=== PATIENT | female | born 1985 | race Caucasian/White ===

== ENCOUNTER 2019-07-31 16:42 | Emergency (ER) | payer SELFPAY ==
--- NOTE | 2019-07-31 17:07 | Emergency Department Report ---
Chief Complaint: Abdominal Pain Stated Complaint: ABD PAIN BACK PAIN - HPI History of Present Illness: Bilateral back and lower abdominal pain. labs ordered. MSE screening note: Focused history and physical exam performed. Due to findings the following was ordered: ED Disposition for MSE Condition: Stable Instructions: Abdominal Pain (ED)
[2019-07-31 17:13] VITALS: BP 128/56
[2019-07-31 17:22] LABS: Basophils # (Auto) 0.1 K/mm3 (0.0-0.1); Basophils % (Auto) 1.1 % (0.0-1.8); Eosinophils # (Auto) 0.1 K/mm3 (0.0-0.4); Eosinophils % (Auto) 0.7 % (0.0-4.3); Hematocrit 39.1 % (30.3-42.9); Hemoglobin 13.1 gm/dl (10.1-14.3); Lymphocytes # (Auto) 3.3 K/mm3 (1.2-5.4); Lymphocytes % (Auto) 33.6 % (13.4-35.0); Mean Corpuscular HGB Conc 34 % (30-34); Mean Corpuscular Volume 92 fl (79-97); Monocytes # (Auto) 0.8 K/mm3 (0.0-0.8); Monocytes % (Auto) 8.6 % (0.0-7.3); Platelet Count 242 K/mm3 (140-440); Red Blood Count 4.26 M/mm3 (3.65-5.03); Red Cell Distribution Width 14.4 % (13.2-15.2)
[2019-07-31 17:44] LABS: BUN/Creatinine Ratio 10; Blood Urea Nitrogen 7 mg/dL (7-17); Calcium 9.5 mg/dL (8.4-10.2); Hemolysis Index 5
--- NOTE | 2019-07-31 18:12 | Emergency Department Report ---
ED Abdominal Pain HPI - General Chief Complaint: Abdominal Pain Stated Complaint: ABD PAIN BACK PAIN Time Seen by Provider: 07/31/19 18:08 Source: patient Mode of arrival: Ambulatory Limitations: No Limitations - History of Present Illness Initial Comments: 34-year-old -French female presents to the emergency room for intermittent back pain and pelvic pain off and on for one week. Patient states she is unsure if she is . Patient states that her pain is worse when she stands for long period time. 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 Patient states that ibuprofen makes it better. Patient denies any vaginal discharge vaginal bleeding. Patient denies any heavy cycles. Patient last took ibuprofen last week which she reports helped. Patient currently is in no pain. Patient reports her last menstrual period was 07/17/2019. Patient reports that the pain is intermittently. Patient denies any past medical history currently takes no medications on a daily basis and has no known drug allergies. MD Complaint: abdominal pain Onset/Timin -: week(s) Location: suprapubic Radiation: none Severity scale (0 -10): 0 Quality: aching Consistency: intermittent Improves With: medication Worsens With: other (standing and lifting for long periods of time) Associated Symptoms: nausea - Related Data LMP Date: 07/17/19 Allergies Allergy/AdvReac Type Severity Reaction Status Date / Time No Known Allergies Allergy Unverified 07/31/19 16:53 ED Review of Systems ROS: Stated complaint: ABD PAIN BACK PAIN Other details as noted in HPI Comment: All other systems reviewed and negative ED Past Medical Hx - Past Medical History Previous Medical History?: No - Surgical History Past Surgical History?: No - Social History Smoking Status: Never Smoker Substance Use Type: None ED Physical Exam - General Limitations: No Limitations General appearance: alert, in no apparent distress - Head Head exam: Present: atraumatic, normocephalic - Eye Eye exam: Present: normal appearance - ENT ENT exam: Present: mucous membranes moist - Neck Neck exam: Present: normal inspection - Respiratory Respiratory exam: Present: normal lung sounds bilaterally. Absent: respiratory distress - Cardiovascular Cardiovascular Exam: Present: regular rate, normal rhythm. Absent: systolic murmur, diastolic murmur, rubs, gallop - GI/Abdominal GI/Abdominal exam: Present: soft, normal bowel sounds - Extremities Exam Extremities exam: Present: normal inspection - Back Exam Back exam: Present: normal inspection, full ROM. Absent: tenderness - Expanded Back Exam Expanded Back exam: Negative Straight Leg Raising: Left, Right - Neurological Exam Neurological exam: Present: alert, oriented X3, normal gait - Psychiatric Psychiatric exam: Present: normal affect, normal mood - Skin Skin exam: Present: warm, dry, intact, normal color. Absent: rash ED Course Vital Signs 07/31/19 17:05 Temperature 98.8 F Pulse Rate 70 Respiratory 18 Rate Blood Pressure 128/56 O2 Sat by Pulse 100 Oximetry - Reevaluation(s) Reevaluation #1: 07/31/19 18:11 Provider picked up chart no urine has been collected. ED Medical Decision Making - Lab Data Result diagrams: 07/31/19 17:14 07/31/19 17:14 - Medical Decision Making 34-year-old -French female presents to the emergency room for intermittent back pain and pelvic pain off and on for one week. Patient states she is unsure if she is . Patient states that her pain is worse when she stands for long period time. 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 Patient states that ibu profen makes it better. Patient denies any vaginal discharge vaginal bleeding. Patient denies any heavy cycles. Patient last took ibuprofen last week which she reports helped. Patient currently is in no pain. Patient reports her last menstrual period was 07/17/2019. Patient reports that the pain is intermittently. Patient denies any past medical history currently takes no medications on a daily basis and has no known drug allergies. Patient's labs are all negative. Patient is to continue with ibuprofen as needed for pain and follow-up with her primary care provider. Critical care attestation.: If time is entered above; I have spent that time in minutes in the direct care of this critically ill patient, excluding procedure time. ED Disposition Clinical Impression: Lower back pain, Pelvic pain Disposition: TO HOME OR SELFCARE Is pt being admited?: No Does the pt Need Aspirin: No Condition: Stable Instructions: Abdominal Pain (ED) Additional Instructions: Continue with ibuprofen as needed for intermittent back pain. I recommended for you to follow up with her primary care provider and [facility] provider. Referrals: KATHRYN ZHANG MD [Staff Physician] - 3-5 Days WALDO BRYANT MD [Staff Physician] - 3-5 Days
[2019-07-31 18:34] LABS: Bacteria,Urine 1+ /HPF (Negative); Bilirubin,Urine NEG (Negative); Blood,Urine SM (Negative); Color,Urine Straw (Yellow); Protein,Urine <15 mg/dL mg/dL (Negative); Urobilinogen,Urine < 2.0 mg/dL (<2.0)
== END 2019-07-31 20:20 | disposition home or self-care (01) ==
LOC: ED 16:42
DX: M54.5 Low back pain (principal); R10.2 Pelvic and perineal pain
CPT/HCPCS: 36415; 80048; 81001; 84703; 85025

== ENCOUNTER 2019-08-03 11:40 | Emergency (ER) | payer SELFPAY ==
[2019-08-03 11:48] VITALS: BP 112/68
--- NOTE | 2019-08-03 13:03 | Emergency Department Report ---
Chief Complaint: Upper Respiratory Infection Stated Complaint: CHEST PAIN - HPI History of Present Illness: 34 yo female c/o cp x 2 days pain midline rad to back and burning worse with eating spicy food, orange juice sob while lying flat due to pain no pain on exertion no calf tenderness, edema, recent travel, pe/dvd, control mild occ nonproductive cough no fever - ROS Review of Systems: as per hpi - Exam Vital Signs: Vital Signs 08/03/19 08/03/19 11:45 11:46 Temperature 98.2 F Pulse Rate 79 Respiratory 16 Rate Blood Pressure 112/68 Blood Pressure 112/68 [Right] O2 Sat by Pulse 100 Oximetry Physical Exam: no distress chest wall nontender lungs ctab no tachypnea no calf tenderness, leg edema back nontender MSE screening note: Focused history and physical exam performed. Due to findings the following was ordered: sx suggestive of Gerd ekg non emergent medical condition ED Medical Decision Making - EKG Data -: EKG Interpreted by Me EKG shows normal: sinus rhythm, ST-T waves (no stemi) Rate: normal - Medical Decision Making ekg normal, no ischemia low heart score (no of trop) perc pe score 0 no dvt clinical findings on exam ED Disposition for MSE Clinical Impression: GERD (gastroesophageal reflux disease) Disposition: MED SCREENING EXAM-LEFT Is pt being admited?: No Does the pt Need Aspirin: No Condition: Stable Instructions: Gastroesophageal Reflux Disease (ED) Additional Instructions: take over the counter pepcid or zantac and maalox Referrals: KATHRYN ZHANG MD [Staff Physician] - 3-5 Days [facility] [Provider Group] - 3-5 Days Time of Disposition: 13:07
== END 2019-08-03 13:15 | disposition left against medical advice (07) ==
LOC: ED 11:40
DX: K21.9 Gastro-esophageal reflux disease without esophagitis (principal)
CPT/HCPCS: 93005; 93010; 99281

== ENCOUNTER 2019-08-20 16:54 | Emergency (ER) | payer SELFPAY ==
--- NOTE | 2019-08-20 18:45 | Event Note ---
ED Screening Note ED Screening Note: states she felt like her throat was swollen states she felt like she was going to pass out states she is also having ear pain states it began at 4 pm today no n/v/d no fever no sore throat no pain with swallowing no rash no itching states she was recently diagnosed with sinusitis and has been taking augmentin, she has been taking it since 08/18/2019 no acute distress, no angioedema, no stridor, no uvular edema This initial assessment/diagnostic orders/clinical plan/treatment(s) is/are subject to change based on patients health status, clinical progression and re- assessment by fellow clinical providers in the ED. Further treatment and workup at subsequent clinical providers discretion. Patient/guardian urged not to elope from the ED as their condition may be serious if not clinically assessed and managed. acc eval and meds
[2019-08-20] MEDS ORDERED: dexAMETHasone 20 MG/5 ML VIAL IM ONE (18:46)
[2019-08-20] MEDS ORDERED: diphenhydrAMINE 25 MG CAP PO ONE (18:46)
[2019-08-20] MEDS ORDERED: FAMOTIDINE 20 MG TAB PO ONE (18:46)
--- NOTE | 2019-08-20 19:59 | Emergency Department Report ---
ED General Adult HPI - General Chief complaint: Weakness Stated complaint: WEAK Time Seen by Provider: 08/20/19 18:40 Source: patient Mode of arrival: Ambulatory Limitations: No Limitations - History of Present Illness Initial comments: states she felt like her throat was swollen states she felt like she was going to pass out states she is also having ear pain states it began at 4 pm today no n/v/d no fever no sore throat no pain with swallowing no rash no itching states she was recently diagnosed with sinusitis and has been taking augmentin, she has been taking it since 08/17/2019 no acute distress, no angioedema, no stridor, no uvular edema Onset/Timin -: days(s) Severity scale (0 -10): 5 Associated Symptoms: denies other symptoms, cough (dry), nausea/vomiting (no vomiting). denies: fever/chills Treatments Prior to Arrival: other (Augmentin and omeprazole) - Related Data Allergies Allergy/AdvReac Type Severity Reaction Status Date / Time No Known Allergies Allergy Unverified 07/31/19 16:53 ED Review of Systems ROS: Stated complaint: WEAK Other details as noted in HPI Comment: All other systems reviewed and negative ED Past Medical Hx - Past Medical History Previous Medical History?: No - Surgical History Past Surgical History?: No - Social History Smoking Status: Never Smoker Substance Use Type: None ED Physical Exam - General Limitations: No Limitations General appearance: alert, in no apparent distress - Head Head exam: Present: atraumatic, normocephalic - Eye Eye exam: Present: normal appearance - ENT ENT exam: Present: mucous membranes moist - Neck Neck exam: Present: full ROM - Respiratory Respiratory exam: Present: normal lung sounds bilaterally. Absent: respiratory distress - Cardiovascular Cardiovascular Exam: Present: regular rate, normal rhythm. Absent: systolic mu rmur, diastolic murmur, rubs, gallop - GI/Abdominal GI/Abdominal exam: Present: soft, normal bowel sounds - Back Exam Back exam: Present: normal inspection - Neurological Exam Neurological exam: Present: alert, oriented X3, normal gait - Psychiatric Psychiatric exam: Present: normal affect, normal mood ED Course Vital Signs 08/20/19 17:28 Temperature 98.1 F Pulse Rate 71 Respiratory 18 Rate Blood Pressure 118/70 O2 Sat by Pulse 100 Oximetry - Reevaluation(s) Reevaluation #1: 08/20/19 20:36 Patient reports she feels much better. ED Medical Decision Making - Medical Decision Making states she felt like her throat was swollen states she felt like she was going to pass out states she is also having ear pain states it began at 4 pm today no n/v/d no fever no sore throat no pain with swallowing no rash no itching states she was recently diagnosed with sinusitis and has been taking augmentin, she has been taking it since 08/17/2019 no acute distress, no angioedema, no stridor, no uvular edema Patient reports she feels much better. Patient be discharged to continue taking medication that was prescribed by her primary care provider. Critical care attestation.: If time is entered above; I have spent that time in minutes in the direct care of this critically ill patient, excluding procedure time. ED Disposition Clinical Impression: Episode of generalized weakness Disposition: DC-01 TO HOME OR SELFCARE Is pt being admited?: No Does the pt Need Aspirin: No Condition: Stable Additional Instructions: Continue taking medication that was prescribed by your primary care provider. Follow-up with your primary care provider if his symptoms persist or gets worse. Referrals: PRIMARY CAREMD [Primary Care Provider] - 3-5 Days Edgar Cid [Other] - 3-5 Days Forms: Work/School Release Form(ED)
[2019-08-20 20:13] VITALS: BP 128/50
== END 2019-08-20 20:40 | disposition home or self-care (01) ==
LOC: ED 16:54
DX: R53.1 Weakness (principal)
CPT/HCPCS: 96372; 99282; J1100

== ENCOUNTER 2019-09-18 19:06 | Emergency (ER) | payer SELFPAY ==
[2019-09-18 21:03] VITALS: BP 120/81
--- NOTE | 2019-09-18 21:05 | Event Note ---
ED Screening Note Date of service: 09/18/19 Time: 21:01 ED Screening Note: 34 yo f presents with mid sternal pain x today pt states pain in left upper shoulder x this afternoon PMH: GERD This initial assessment/diagnostic orders/clinical plan/treatment(s) is/are subject to change based on patients health status, clinical progression and re- assessment by fellow clinical providers in the ED. Further treatment and workup at subsequent clinical providers discretion. Patient/guardian urged not to elope from the ED as their condition may be serious if not clinically assessed and managed. Initial orders include: ekg, cxr acc eval
[2019-09-18 22:57] LABS: HCG Qualitative,Urine Negative (Negative)
[2019-09-18] MEDS ORDERED: diphenhydrAMINE 25 MG/10 ML ORAL LIQUID PO ONE (23:08)
[2019-09-18] MEDS ORDERED: ALUM-MAG HYDROXIDE-SIMETHICONE 200-200-20MG/5ML ORAL LIQD 30 ML PO STA (23:08)
[2019-09-18] MEDS ORDERED: LIDOCAINE VISCOUS 2% 15 ML ORAL LIQD PO ONE (23:08)
--- NOTE | 2019-09-19 00:31 | Emergency Department Report ---
ED General Adult HPI - General Chief complaint: Chest Pain Stated complaint: CHEST PAIN LT ARM PAIN Time Seen by Provider: 09/18/19 23:01 Source: patient Mode of arrival: Ambulatory Limitations: No Limitations - History of Present Illness Initial comments: 34-year-old -T[place]is[place] female presents emergency department complaining of having a substernal mid chest burning-like pain which is more appreciated after certain meals. Change pain does not radiate up towards her throat and occasionally towards her back associated with dyspepsia. She reports no fever, chills, sweats no nausea nausea vomiting no palpitations no hemoptysis no hematemesis no hematochezia no wheezing Location: chest Radiation: non-radiation Severity scale (0 -10): 0 Consistency: constant Improves with: none Worsens with: none Treatments Prior to Arrival: none - Related Data Previous Rx's Medication Instructions Recorded Last Taken Type Amoxicillin/Potassium Clav 1 each PO BID #8 tablet 09/19/19 Unknown Rx [Augmentin 875-125 Tablet] Esomeprazole Magnesium [NexIUM] 40 mg PO QDAY #30 suspdr.pkt 09/19/19 Unknown Rx metroNIDAZOLE [Flagyl] 500 mg PO Q12HR #28 tab 09/19/19 Unknown Rx raNITIdine HCl [Zantac] 150 mg PO BID #60 tablet 09/19/19 Unknown Rx Allergies Allergy/AdvReac Type Severity Reaction Status Date / Time No Known Allergies Allergy Unverified 07/31/19 16:53 ED Review of Systems ROS: Stated complaint: CHEST PAIN LT ARM PAIN Other details as noted in HPI Comment: All other systems reviewed and negative ED Past Medical Hx - Past Medical History Previous Medical History?: No - Surgical History Past Surgical History?: No - Social History Smoking Status: Never Smoker Substance Use Type: None - Medications Home Medications: Home Medications Medication Instructions Recorded Confirmed Last Taken Type Amoxicillin/Potassium Clav 1 each PO BID #8 tablet 09/19/19 Unknown Rx [Augmentin 875-125 Tablet] Esomeprazole Magnesium [NexIUM] 40 mg PO QDAY #30 suspdr.pkt 09/19/19 Unknown Rx metroNIDAZOLE [Flagyl] 500 mg PO Q12HR #28 tab 09/19/19 Unknown Rx raNITIdine HCl [Zantac] 150 mg PO BID #60 tablet 09/19/19 Unknown Rx ED Physical Exam - General Limitations: No Limitations General appearance: alert, in no apparent distress - Head Head exam: Present: atraumatic, normocephalic - Eye Eye exam: Present: normal appearance, PERRL, EOMI Pupils: Present: normal accommodation - ENT ENT exam: Present: normal exam, mucous membranes moist, TM's normal bilaterally - Neck Neck exam: Present: normal inspection, full ROM - Respiratory Respiratory exam: Present: normal lung sounds bilaterally. Absent: respiratory distress, wheezes, rales, chest wall tenderness, accessory muscle use, decreased breath sounds - Cardiovascular Cardiovascular Exam: Present: regular rate, normal rhythm. Absent: systolic murmur, diastolic murmur, rubs, gallop - GI/Abdominal GI/Abdominal exam: Present: soft, normal bowel sounds. Absent: tenderness, guarding, hyperactive bowel sounds, hypoactive bowel sounds, organomegaly, mass - Extremities Exam Extremities exam: Present: normal inspection - Back Exam Back exam: Present: normal inspection. Absent: CVA tenderness (R), CVA tenderness (L), paraspinal tenderness, vertebral tenderness - Neurological Exam Neurological exam: Present: alert, oriented X3, CN II-XII intact, normal gait - Psychiatric Psychiatric exam: Present: normal affect, normal mood - Skin Skin exam: Present: warm, dry, intact, normal color. Absent: rash ED Course Vital Signs 09/18/19 09/18/19 09/19/19 20:12 21:01 00:45 Temperature 99.1 F 99.1 F Pulse Rate 68 68 73 Respiratory 18 18 16 Rate Blood Pressure 120/81 Blood Pressure 127/84 [Right] O2 Sat by Pulse 100 100 100 Oximetry ED Medical Decision Making - EKG Data EKG shows normal: sinus rhythm Rate: normal - EKG Data Interpretation: normal EKG - Medical Decision Making This patient presents with chest pain that is very unlikely angina or acute coronary syndrome. The emergency department evaluation has not identified any cause for suspicion that this chest pain has a cardiac etiology. Based on their history, EKG (which showed no evidence of ischemia or infarction) and imaging, in addition to the patient's physical exam, I see no evidence at this time for a malignant etiology for the patient's chest pain. There is no acute evidence for pulmonary embolus, acute myocardial infarction, pneumothorax, Boerhaeve syndrome, cardiac tamponade, thoracic artery dissection, or any other emergent cardiac, pulmonary or aortic pathology. Given the low pre-test probability for cardiac etiology of chest pain and the absence of any sign of ischemia or infarction, discharge for outpatient follow-up and further evaluation is reasonable. I have explained to the patient that even though a cardiac problem is very unlikely, follow-up and further testing is required to reduce further the already small uncertainty that exists. Other life-threatening diagnoses have been considered. The patient understands the need to return immediately if their symptoms worsen or they develop any new symptoms, and not to engage in any significant exertional activity until follow-up is obtained. Critical care attestation.: If time is entered above; I have spent that time in minutes in the direct care of this critically ill patient, excluding procedure time. ED Disposition Clinical Impression: GERD (gastroesophageal reflux disease) Disposition: - TO HOME OR SELFCARE Is pt being admited?: No Does the pt Need Aspirin: No Condition: Stable Instructions: Peptic Ulcer (ED), Gastroesophageal Reflux in Children (ED), Gastroesophageal Reflux Disease (ED) Prescriptions: Amoxicillin/Potassium Clav [Augmentin 875-125 Tablet] 1 each PO BID #8 tablet metroNIDAZOLE [Flagyl] 500 mg PO Q12HR #28 tab Esomeprazole Magnesium [NexIUM] 40 mg PO QDAY #30 suspdr.pkt raNITIdine HCl [Zantac] 150 mg PO BID #60 tablet Referrals: ANJELICA COLE [Other] - 3-5 Days
== END 2019-09-19 00:45 | disposition home or self-care (01) ==
LOC: ED 19:06
DX: K21.9 Gastro-esophageal reflux disease without esophagitis (principal)
CPT/HCPCS: 81025; 93005; 93010; 99283; Q0163

== ENCOUNTER 2019-10-24 08:37 | Emergency (ER) | payer OTHER ==
[2019-10-24 08:50] VITALS: BP 123/74
--- NOTE | 2019-10-24 12:02 | Emergency Department Report ---
ED Chest Pain HPI - General Chief Complaint: Chest Pain Stated Complaint: CHEST PAIN Time Seen by Provider: 10/24/19 11:22 Source: patient Mode of arrival: Ambulatory Limitations: No Limitations - History of Present Illness Initial Comments: This is a 34-year-old -Citizen Of [place] female who presents to the emergency room with chest pain that started last night. Past medical history of GERD. Patient also reports he feels like something is in her throat. Reports palpitations that started last night but resolved. Symptoms started again around 4 AM this morning. Patient reports similar symptoms last month and saw her primary care Dr. Edgar Villeda and had a normal chest x-ray. Instructed to follow-up if symptoms worsen. Patient states symptoms just started back last night. She denies weakness, fever, chills, cough, shortness of breath, wheezing, nausea, or vomiting. MD Complaint: chest pain -: Last night Pain Location: substernal Pain Radiation: none Severity: moderate Severity scale (0 -10): 8 Quality: tightness Consistency: intermittent Improves With: nothing Worsens With: nothing Other Symptoms: palpitations Treatments Prior to Arrival: none Aspirin use within the Past 7 Days: (0) No - Related Data On Oral Contraceptives: No Previous Rx's Medication Instructions Recorded Last Taken Type Amoxicillin/Potassium Clav 1 each PO BID #8 tablet 09/19/19 Unknown Rx [Augmentin 875-125 Tablet] Esomeprazole Magnesium [NexIUM] 40 mg PO QDAY #30 suspdr.pkt 09/19/19 Unknown Rx metroNIDAZOLE [Flagyl] 500 mg PO Q12HR #28 tab 09/19/19 Unknown Rx raNITIdine HCl [Zantac] 150 mg PO BID #60 tablet 09/19/19 Unknown Rx Allergies Allergy/AdvReac Type Severity Reaction Status Date / Time No Known Allergies Allergy Verified 10/24/19 08:39 Heart Score - HEART Score History: Slightly suspicious EKG: Normal Age: < 45 Risk factors: 1-2 risk factors Troponin: < normal limit HEART Score: 1 - Critical Actions Critical Actions: 0-3 pts:0.9-1.7%risk of adverse cardiac event.Candidate for discharge ED Review of Systems ROS: Stated complaint: CHEST PAIN Other details as noted in HPI Constitutional: denies: chills, fever ENT: throat pain. denies: ear pain Respiratory: denies: cough, shortness of breath, wheezing Cardiovascular: chest pain, palpitations Endocrine: no symptoms reported Gastrointestinal: denies: abdominal pain, nausea, diarrhea Skin: denies: rash, lesions Neurological: denies: headache, weakness, paresthesias Psychiatric: denies: anxiety, depression ED Past Medical Hx - Past Medical History Previous Medical History?: No - Surgical History Past Surgical History?: No - Social History Smoking Status: Never Smoker Substance Use Type: None - Medications Home Medications: Home Medications Medication Instructions Recorded Confirmed Last Taken Type Amoxicillin/Potassium Clav 1 each PO BID #8 tablet 09/19/19 Unknown Rx [Augmentin 875-125 Tablet] Esomeprazole Magnesium [NexIUM] 40 mg PO QDAY #30 suspdr.pkt 09/19/19 Unknown Rx metroNIDAZOLE [Flagyl] 500 mg PO Q12HR #28 tab 09/19/19 Unknown Rx raNITIdine HCl [Zantac] 150 mg PO BID #60 tablet 09/19/19 Unknown Rx ED Physical Exam - General Limitations: No Limitations General appearance: alert, in no apparent distress, obese - ENT ENT exam: Present: mucous membranes moist - Neck Neck exam: Present: full ROM, other (Palpated half centimeter mass left thyroid, mobile, nontender). Absent: meningismus, lymphadenopathy - Respiratory Respiratory exam: Present: normal lung sounds bilaterally. Absent: respiratory distress - Cardiovascular Cardiovascular Exam: Present: regular rate, normal rhythm. Absent: systolic murmur, diastolic murmur, rubs, gallop - GI/Abdominal GI/Abdominal exam: Present: soft, normal bowel sounds. Absent: distended, tenderness, guarding, rebound, rigid - Extremities Exam Extremities exam: Present: normal inspection - Neurological Exam Neurological exam: Present: alert, oriented X3, normal gait - Psychiatric Psychiatric exam: Present: normal affect, normal mood - Skin Skin exam: Present: warm, dry, intact, normal color. Absent: rash ED Course Vital Signs 10/24/19 08:49 Temperature 98.5 F Pulse Rate 81 Respiratory 18 Rate Blood Pressure 123/74 [Right] O2 Sat by Pulse 100 Oximetry ED Medical Decision Making - Lab Data Result diagrams: 10/24/19 12:03 10/24/19 12:03 Lab Results 10/24/19 10/24/19 10/24/19 Range/Units 12:03 12:03 12:03 WBC 4.9 (4.5-11.0) K/mm3 RBC 4.57 (3.65-5.03) M/mm3 Hgb 14.0 (10.1-14.3) gm/dl Hct 41.2 (30.3-42.9) % MCV 90 (79-97) fl MCH 31 (28-32) pg MCHC 34 (30-34) % RDW 15.5 H (13.2-15.2) % Plt Count 187 (140-440) K/mm3 [place] % (Auto) Category Planner Add Manual Diff Complete Total Counted 100 Seg Neuts % (Manual) 56.0 (40.0-70.0) % Band Neutrophils % 0 % Lymphocytes % (Manual) 32.0 (13.4-35.0) % Reactive Lymphs % (Man) 1.0 % Monocytes % (Manual) 10.0 H (0.0-7.3) % Eosinophils % (Manual) 0 (0.0-4.3) % Basophils % (Manual) 1.0 (0.0-1.8) % Metamyelocytes % 0 % Myelocytes % 0 % Promyelocytes % 0 % Blast Cells % 0 % Nucleated RBC % Not Reportable Seg Neutrophils # Man 2.7 (1.8-7.7) K/mm3 Band Neutrophils # 0.0 K/mm3 Lymphocytes # (Manual) 1.6 (1.2-5.4) K/mm3 Abs React Lymphs (Man) 0.0 K/mm3 Monocytes # (Manual) 0.5 (0.0-0.8) K/mm3 Eosinophils # (Manual) 0.0 (0.0-0.4) K/mm3 Basophils # (Manual) 0.0 (0.0-0.1) K/mm3 Metamyelocytes # 0.0 K/mm3 Myelocytes # 0.0 K/mm3 Promyelocytes # 0.0 K/mm3 Blast Cells # 0.0 K/mm3 WBC Morphology Not Reportable Hypersegmented Neuts Not Reportable Hyposegmented Neuts Not Reportable Hypogranular Neuts Not Reportable Smudge Cells Not Reportable Toxic Granulation Not Reportable Toxic Vacuolation Not Reportable Dohle Bodies Not Reportable Pelger-Huet Anomaly Not Reportable Thom Rods Not Reportable Platelet Estimate Consistent w auto Clumped Platelets Not Reportable Plt Clumps, EDTA Not Reportable Large Platelets Few Giant Platelets Not Reportable Platelet Satelliting Not Reportable Plt Morphology Comment Not Reportable RBC Morphology Normal Dimorphic RBCs Not Reportable Polychromasia Not Reportable Hypochromasia Not Reportable Poikilocytosis Not Reportable Anisocytosis Not Reportable Microcytosis Not Reportable Macrocytosis Not Reportable Spherocytes Not Reportable Pappenheimer Bodies Not Reportable Sickle Cells Not Reportable Target Cells Not Reportable Tear Drop Cells Not Reportable Ovalocytes Not Reportable Helmet Cells Not Reportable [place] Bodies Not Reportable [place] Rings Not Reportable [place] Cells Not Reportable Bite Cells Not Reportable Crenated Cell Not Reportable Elliptocytes Not Reportable Acanthocytes (Spur) Not Reportable Rouleaux Not Reportable Hemoglobin C Crystals Not Reportable Schistocytes Not Reportable Malaria parasites Not Reportable Jesus Bodies Not Reportable Hem Pathologist Commnt No Sodium 137 (137-145) mmol/L Potassium 4.0 (3.6-5.0) mmol/L Chloride 100.3 (98-107) mmol/L Carbon Dioxide 24 (22-30) mmol/L Anion Gap 17 mmol/L BUN 8 (7-17) mg/dL Creatinine 0.7 (0.7-1.2) mg/dL Estimated GFR > 60 ml/min BUN/Creatinine Ratio 11 % Glucose 86 (65-100) mg/dL Calcium 9.4 (8.4-10.2) mg/dL Troponin T (0.00-0.029) ng/mL TSH 5.020 H (0.270-4.200) mlU/mL Thyroxine (T4) (4.0-12.0) ug/dL HCG, Qual (Negative) 10/24/19 10/24/19 10/24/19 Range/Units 12:03 12:03 13:23 WBC (4.5-11.0) K/mm3 RBC (3.65-5.03) M/mm3 Hgb (10.1-14.3) gm/dl Hct (30.3-42.9) % MCV (79-97) fl MCH (28-32) pg MCHC (30-34) % RDW (13.2-15.2) % Plt Count (140-440) K/mm3 [place] % (Auto) Add Manual Diff Total Counted Seg Neuts % (Manual) (40.0-70.0) % Band Neutrophils % % Lymphocytes % (Manual) (13.4-35.0) % Reactive Lymphs % (Man) % Monocytes % (Manual) (0.0-7.3) % Eosinophils % (Manual) (0.0-4.3) % Basophils % (Manual) (0.0-1.8) % Metamyelocytes % % Myelocytes % % Promyelocytes % % Blast Cells % % Nucleated RBC % Seg Neutrophils # Man (1.8-7.7) K/mm3 Band Neutrophils # K/mm3 Lymphocytes # (Manual) (1.2-5.4) K/mm3 Abs React Lymphs (Man) K/mm3 Monocytes # (Manual) (0.0-0.8) K/mm3 Eosinophils # (Manual) (0.0-0.4) K/mm3 Basophils # (Manual) (0.0-0.1) K/mm3 Metamyelocytes # K/mm3 Myelocytes # K/mm3 Promyelocytes # K/mm3 Blast Cells # K/mm3 WBC Morphology Hypersegmented Neuts Hyposegmented Neuts Hypogranular Neuts Smudge Cells Toxic Granulation Toxic Vacuolation Dohle Bodies Pelger-Huet Anomaly Thom Rods Platelet Estimate Clumped Platelets Plt Clumps, EDTA Large Platelets Giant Platelets Platelet Satelliting Plt Morphology Comment RBC Morphology Dimorphic RBCs Polychromasia Hypochromasia Poikilocytosis Anisocytosis Microcytosis Macrocytosis Spherocytes Pappenheimer Bodies Sickle Cells Target Cells Tear Drop Cells Ovalocytes Helmet Cells [place] Bodies [place] Rings [place] Cells Bite Cells Crenated Cell Elliptocytes Acanthocytes (Spur) Rouleaux Hemoglobin C Crystals Schistocytes Malaria parasites Jesus Bodies Hem Pathologist Commnt Sodium (137-145) mmol/L Potassium (3.6-5.0) mmol/L Chloride (98-107) mmol/L Carbon Dioxide (22-30) mmol/L Anion Gap mmol/L BUN (7-17) mg/dL Creatinine (0.7-1.2) mg/dL Estimated GFR ml/min BUN/Creatinine Ratio % Glucose (65-100) mg/dL Calcium (8.4-10.2) mg/dL Troponin T < 0.010 (0.00-0.029) ng/mL TSH (0.270-4.200) mlU/mL Thyroxine (T4) 4.8 (4.0-12.0) ug/dL HCG, Qual Negative (Negative) 10/24/19 Range/Units 14:27 WBC (4.5-11.0) K/mm3 RBC (3.65-5.03) M/mm3 Hgb (10.1-14.3) gm/dl Hct (30.3-42.9) % MCV (79-97) fl MCH (28-32) pg MCHC (30-34) % RDW (13.2-15.2) % Plt Count (140-440) K/mm3 [place] % (Auto) Add Manual Diff Total Counted Seg Neuts % (Manual) (40.0-70.0) % Band Neutrophils % % Lymphocytes % (Manual) (13.4-35.0) % Reactive Lymphs % (Man) % Monocytes % (Manual) (0.0-7.3) % Eosinophils % (Manual) (0.0-4.3) % Basophils % (Manual) (0.0-1.8) % Metamyelocytes % % Myelocytes % % Promyelocytes % % Blast Cells % % Nucleated RBC % Seg Neutrophils # Man (1.8-7.7) K/mm3 Band Neutrophils # K/mm3 Lymphocytes # (Manual) (1.2-5.4) K/mm3 Abs React Lymphs (Man) K/mm3 Monocytes # (Manual) (0.0-0.8) K/mm3 Eosinophils # (Manual) (0.0-0.4) K/mm3 Basophils # (Manual) (0.0-0.1) K/mm3 Metamyelocytes # K/mm3 Myelocytes # K/mm3 Promyelocytes # K/mm3 Blast Cells # K/mm3 WBC Morphology Hypersegmented Neuts Hyposegmented Neuts Hypogranular Neuts Smudge Cells Toxic Granulation Toxic Vacuolation Dohle Bodies Pelger-Huet Anomaly Thom Rods Platelet Estimate Clumped Platelets Plt Clumps, EDTA Large Platelets Giant Platelets Platelet Satelliting Plt Morphology Comment RBC Morphology Dimorphic RBCs Polychromasia Hypochromasia Poikilocytosis Anisocytosis Microcytosis Macrocytosis Spherocytes Pappenheimer Bodies Sickle Cells Target Cells Tear Drop Cells Ovalocytes Helmet Cells [place] Bodies [place] Rings [place] Cells Bite Cells Crenated Cell Elliptocytes Acanthocytes (Spur) Rouleaux Hemoglobin C Crystals Schistocytes Malaria parasites Jesus Bodies Hem Pathologist Commnt Sodium (137-145) mmol/L Potassium (3.6-5.0) mmol/L Chloride (98-107) mmol/L Carbon Dioxide (22-30) mmol/L Anion Gap mmol/L BUN (7-17) mg/dL Creatinine (0.7-1.2) mg/dL Estimated GFR ml/min BUN/Creatinine Ratio % Glucose (65-100) mg/dL Calcium (8.4-10.2) mg/dL Troponin T < 0.010 (0.00-0.029) ng/mL TSH (0.270-4.200) mlU/mL Thyroxine (T4) (4.0-12.0) ug/dL HCG, Qual (Negative) - EKG Data -: No EKG Interpreted by Me (EKG interpreted by attending) EKG shows normal: sinus rhythm Rate: normal - Radiology Data Radiology results: report reviewed CHEST 2 VIEWS, 10/24/2019 12:04 PM INDICATION: Chest pain COMPARISON: None FINDINGS: Support devices: None. Heart: The heart is normal in size. Lungs/pleura: The lungs are well expanded and appear clear of focal airspace disease or significant pleural effusion. Additional findings: No significant acute abnormality. IMPRESSION: 1. No evidence of acute cardiopulmonary process. - Medical Decision Making 34-year-old female presents with chest pain and a sensation of something in her throat since last night. Vitals are stable and patient in no acute distress. Past medical history of GERD. A half centimeter mass palpated left thyroid, nontender, mobile. Labs, EKG, chest x-ray, thyroid ultrasound obtained. Elevated TSH. Chest x-ray negative for acute cardiopulmonary findings. EKG interpreted by attending with no acute STEMI. Thyroid ultrasound pending. Informed by nursing staff patient is interested in leaving before results. Patient informed radiologist will read ultrasound and pending. She was given risk of leaving AGAINST MEDICAL ADVICE. Nursing staff informed patient signed AMA and left because her spouse had to go to work. Critical care attestation.: If time is entered above; I have spent that time in minutes in the direct care of this critically ill patient, excluding procedure time. ED Disposition Clinical Impression: Left against medical advice Disposition: DC- LEFT AGAINST MED ADVICE Is pt being admited?: No Condition: Stable Referrals: EDG[facility]ILLEDA [Other] - 3-5 Days
[2019-10-24 12:25] LABS: Hematocrit 41.2 % (30.3-42.9); Mean Corpuscular HGB Conc 34 % (30-34); Mean Corpuscular Volume 90 fl (79-97); Platelet Count 187 K/mm3 (140-440); Red Blood Count 4.57 M/mm3 (3.65-5.03); Red Cell Distribution Width 15.5 % (13.2-15.2)
[2019-10-24] MEDS ORDERED: NALOXONE 2 MG/2 ML INJ ONE (12:48)
[2019-10-24 12:53] LABS: BUN/Creatinine Ratio 11; Blood Urea Nitrogen 8 mg/dL (7-17); Calcium 9.4 mg/dL (8.4-10.2); Hemolysis Index 6
--- NOTE | 2019-10-24 13:11 | XRay Report ---
CHEST 2 VIEWS, 10/24/2019 12:04 PM INDICATION: Chest pain COMPARISON: None FINDINGS: Support devices: None. Heart: The heart is normal in size. Lungs/pleura: The lungs are well expanded and appear clear of focal airspace disease or significant p leural effusion. Additional findings: No significant acute abnormality. IMPRESSION: 1. No evidence of acute cardiopulmonary process. Signer Name: Reba Ace MD Signed: 10/24/2019 1:07 PM Workstation Name: [id number]
[2019-10-24 13:17] LABS: Eosinophils % (Manual) 0 % (0.0-4.3); Large Platelets Few; Platelet Estimate Consistent w Auto; RBC Morphology Normal; Total Cells Counted 100
--- NOTE | 2019-10-24 16:48 | Ultrasound Report ---
US thyroid scan INDICATION / CLINICAL INFORMATION: sore throat. COMPARISON: None available. FINDINGS: A 1.4 cm solid nodule is demonstrated at the junction of the isthmus and left lobe. This nodule is so mewhat ill-defined, with complex echogenicity. It contains no obvious calcification and is relatively hypovascular. Fibroid is otherwise unremarkable. IMPRESSION: 1. Dominant solid nodule at the junction of the isthmus and left lobe. Suggest biopsy. Signer Name: Yoan Cotto MD Signed: 10/24/2019 4:43 PM Workstation Name: [id number]
== END 2019-10-24 16:01 | disposition left against medical advice (07) ==
LOC: ED 08:37
DX: R07.89 Other chest pain (principal); Z79.2 Long term (current) use of antibiotics; Z79.899 Other long term (current) drug therapy
CPT/HCPCS: 36415; 71046; 76536; 80048; 84436; 84443; 84481; 84484; 84703; 85007; 85025; 93005; J2310

== ENCOUNTER 2019-12-09 11:40 | Emergency (ER) | payer SELFPAY ==
[2019-12-09 13:14] VITALS: BP 119/60
[2019-12-09] MEDS ORDERED: ACETAMINOPHEN 325 MG TAB PO ONE (13:23)
[2019-12-09] MEDS ORDERED: FAMOTIDINE 20 MG TAB PO ONE (13:23)
--- NOTE | 2019-12-09 13:24 | Emergency Department Report ---
ED Chest Pain HPI - General Chief Complaint: Chest Pain Stated Complaint: CHEST PRESSURE/ PUI?: No Time Seen by Provider: 12/09/19 13:08 Source: patient, RN notes reviewed, old records reviewed Mode of arrival: Ambulatory Limitations: No Limitations - History of Present Illness Initial Comments: During the entire history and physical examination, I am residential insurance inspector and escorted by school secretary Torriramos Jimenez Patient is a 34-year-old female who is not known to myself previously. She is currently on Synthroid, prescribed by her outpatient provider, Madalyn Oh The patient presents to the ER with multiple complaints. Her primary complaint is chest pressure, central, does not radiate to the back, arms or neck, present since 7:00 PM yesterday, intermittent, not associated with vomiting, diaphoresis, or exertional shortness of breath. No recent aspirin consumption. Denies oral contraceptive use, surgery, immobilization, denies a family history of heart disease, DVT and pulmonary embolism. The chest pressure is intermittent, does not radiate anywhere, he does not have exacerbating or relieving factors. Denies fever, cough, COVID symptoms. Endorses multiple other complaints, including sporadic intermittent bilateral knee, wrist, arthralgias and swelling, intermittent, also complaining of intermittent, now resolved, bilateral hamstring discomfort. She is not sure if she is . She does not complain of vaginal bleeding or spotting, but does admit a few days ago that she did have some irregular vaginal bleeding. She is not sure if she is . On review of systems, she also endorses dysuria. MD Complaint: chest pain, other -: hour(s), days(s) Pain Location: substernal, left chest, right chest Pain Radiation: none Severity: mild Severity scale (0 -10): 5 Quality: pressure Consistency: intermittent Improves With: nothing Worsens With: nothing re: denies: vomting, dyspnea Treatments Prior to Arrival: none Aspirin use within the Past 7 Days: (0) No - Related Data Previous Rx's Medication Instructions Recorded Last Taken Type Amoxicillin/Potassium Clav 1 each PO BID #8 tablet 09/19/19 Unknown Rx [Augmentin 875-125 Tablet] Esomeprazole Magnesium [NexIUM] 40 mg PO QDAY #30 suspdr.pkt 09/19/19 Unknown Rx metroNIDAZOLE [Flagyl] 500 mg PO Q12HR #28 tab 09/19/19 Unknown Rx raNITIdine HCL [Zantac] 150 mg PO BID #60 tablet 09/19/19 Unknown Rx Allergies Allergy/AdvReac Type Severity Reaction Status Date / Time No Known Allergies Allergy Verified 10/24/19 08:39 Heart Score - HEART Score History: Slightly suspicious EKG: Non-specific Age: < 45 Risk factors: No known risk factors Troponin: < normal limit HEART Score: 1 - Critical Actions Critical Actions: 0-3 pts:0.9-1.7%risk of adverse cardiac event.Candidate for discharge ED Review of Systems ROS: Stated complaint: CHEST PRESSURE/ Other details as noted in HPI Constitutional: denies: fever Eyes: denies: eye discharge ENT: denies: congestion Respiratory: denies: cough, shortness of breath Cardiovascular: chest pain Gastrointestinal: denies: vomiting, diarrhea, constipation Genitourinary: dysuria Musculoskeletal: joint swelling, arthralgia, myalgia. denies: back pain Skin: denies: lesions Neurological: as per HPI. denies: numbness, paresthesias Psychiatric: as per HPI Hematological/Lymphatic: denies: easy bleeding ED Past Medical Hx - Past Medical History Previous Medical History?: Yes Additional medical history: Hypothyroidism - Social History Smoking Status: Never Smoker - Medications Home Medications: Home Medications Medication Instructions Recorded Confirmed Last Taken Type Amoxicillin/Potassium Clav 1 each PO BID #8 tablet 09/19/19 Unknown Rx [Augmentin 875-125 Tablet] Esomeprazole Magnesium [NexIUM] 40 mg PO QDAY #30 suspdr.pkt 09/19/19 Unknown Rx metroNIDAZOLE [Flagyl] 500 mg PO Q12HR #28 tab 09/19/19 Unknown Rx raNITIdine HCL [Zantac] 150 mg PO BID #60 tablet 09/19/19 Unknown Rx ED Physical Exam - General Limitations: No Limitations, Other (Chaperoned by school secretary Maricel Jimenez) General appearance: alert, in no apparent distress - Head Head exam: Present: atraumatic, normocephalic - Eye Eye exam: Present: normal appearance, EOMI. Absent: nystagmus - ENT ENT exam: Present: normal exam, normal orophraynx, mucous membranes moist, normal external ear exam - Neck Neck exam: Present: normal inspection, full ROM. Absent: tenderness, meningismu s - Respiratory Respiratory exam: Present: normal lung sounds bilaterally. Absent: respiratory distress - Cardiovascular Cardiovascular Exam: Present: regular rate, normal rhythm, normal heart sounds. Absent: bradycardia, tachycardia, irregular rhythm, systolic murmur, diastolic murmur, rubs, gallop - GI/Abdominal GI/Abdominal exam: Present: soft. Absent: distended, tenderness, guarding, rebound, rigid, pulsatile mass - Extremities Exam Extremities exam: Present: normal inspection, full ROM, other (2+ pulses noted in the bilateral upper and lower extremities. There is no palpable cord. negative Homans sign. Muscular compartments are soft. The pelvis is stable.). Absent: pedal edema, calf tenderness - Back Exam Back exam: Present: normal inspection, full ROM. Absent: tenderness, CVA te nderness (R), CVA tenderness (L), paraspinal tenderness, vertebral tenderness - Neurological Exam Neurological exam: Present: alert, normal gait, other (No facial droop. Tongue midline. Extraocular movements intact bilaterally. Facial sensation intact to light touch in V1, V2, V3 distribution bilaterally. 5 and a 5 strength in 4 extremities. Sensation intact to light touch in 4 extremities.). Absent: motor sensory deficit - Psychiatric Psychiatric exam: Present: normal affect, normal mood - Skin Skin exam: Present: warm, dry, intact, normal color. Absent: rash ED Course Vital Signs 12/09/19 12/09/19 12/09/19 11:51 13:07 13:11 Temperature 98.3 F 98.6 F Pulse Rate 83 93 H Respiratory 16 17 Rate Blood Pressure 119/60 119/60 Blood Pressure 135/69 [Right] O2 Sat by Pulse 98 99 Oximetry 12/09/19 12/09/19 12/09/19 13:15 13:31 13:45 Temperature Pulse Rate 80 81 92 H Respiratory 15 16 Rate Blood Pressure 119/60 119/60 119/60 Blood Pressure [Right] O2 Sat by Pulse 99 98 Oximetry 12/09/19 13:58 Temperature Pulse Rate Respiratory 18 Rate Blood Pressure Blood Pressure [Right] O2 Sat by Pulse Oximetry - Reevaluation(s) Reevaluation #1: 12/09/19 13:45 Differential diagnosis, including but not limited to: GERD, gastritis, hiatal hernia, pneumonia, coronary artery disease, , polyarthritis Urinary tract infection Assessment and plan: 34-year-old female, who is currently afebrile, with reassuring vital signs, who is not currently tachycardic, tachypneic or hypoxic, who assuming she is not has no pulmonary embolism or DVT risk factors, low risk by Wells criteria, PERC negative, Assuming negative troponin, low risk for major adverse cardiac event as per heart score, symptoms present since 7:00 PM yesterday, symptoms therefore present for greater than 8 hours, therefore, as per the [employer] clinical policy, myocardial infarction may be ruled out with 1 set of cardiac enzymes, presenting with chest pressure, resolved polyarthritis, resolved myalgias, dysuria, and history of irregular menstruation. Patient resting comfortably in her stretcher, in no acute distress, playing with her cellular phone, and has a benign and unremarkable physical examination. We will treat her symptoms, obtain x-ray of the chest, urinalysis, appropriate laboratory studies, including troponin, test, electrolytes, and reas sess. Reevaluation #2: 12/09/19 14:42 Patient feeling improved. Playing on her cellular phone. Troponin negative x1. Labs unremarkable. Not . X-ray of the chest unremarkable. Initial urinalysis contaminated. Repeat clean-catch sample as requested. We discussed the technique with the patient. She is also asking to eat. Reevaluation #3: 12/09/19 15:31 Patient continues to rest comfortably, and is not in any acute distress. I had to call the laboratory multiple times regarding the patient's repeat clean-catch urinalysis. Apparently, the sample was received, and for unclear reasons, canceled. I then had to call up the lab again, weight on hold for approximately 7 minutes, before finally getting in touch with someone who picked up the phone. Thus, the patient is having a prolonged stay in the emergency room, secondary to the laboratory canceling my requested urinalysis without discussing this with me. I therefore contacted the lab, and requested that they uncanceled the repeat clean-catch urinalysis, and run/result it expediently Reevaluation #4: 12/09/19 15:46 Repeat urinalysis not consistent with urinary tract infection. Patient resting comfortably in stretcher, and in no acute distress. Vital signs have remained stable. Suitable for discharge JULES score - Jules Score Age > 65: (0) No Aspirin use within the Past 7 Days: (0) No 3 or more CAD Risk Factors: (0) No 2 or more Angina events in past 24 hrs: (0) No Known CAD with more than 50% Stenosis: (0) No Elevated Cardiac Markers: (0) No ST Deviation Greater than 0.5mm: (0) No JULES Score: 0 ED Medical Decision Making - Lab Data Result diagrams: 12/09/19 13:30 12/09/19 13:30 Vital Signs 12/09/19 12/09/19 11:51 13:11 Temperature 98.3 F 98.6 F Pulse Rate 83 93 H Respiratory 16 17 Rate Blood Pressure 119/60 Blood Pressure 135/69 [Right] O2 Sat by Pulse 98 99 Oximetry Lab Results 12/09/19 12/09/19 12/09/19 Range/Units 13:30 13:30 13:30 WBC 5.0 (4.5-11.0) K/mm3 RBC 4.36 (3.65-5.03) M/mm3 Hgb 13.0 (10.1-14.3) gm/dl Hct 39.3 (30.3-42.9) % MCV 90 (79-97) fl MCH 30 (28-32) pg MCHC 33 (30-34) % RDW 15.7 H (13.2-15.2) % Plt Count 214 (140-440) K/mm3 PT 14.5 (12.2-14.9) Sec. INR 1.15 H (0.87-1.13) Sodium 139 (137-145) mmol/L Potassium 3.9 (3.6-5.0) mmol/L Chloride 102.2 (98-107) mmol/L Carbon Dioxide 27 (22-30) mmol/L Anion Gap 14 mmol/L BUN 8 (7-17) mg/dL Creatinine 0.7 (0.7-1.2) mg/dL Estimated GFR > 60 ml/min BUN/Creatinine Ratio 11 % Glucose 103 H (65-100) mg/dL Calcium 9.2 (8.4-10.2) mg/dL Magnesium (1.7-2.3) mg/dL Total Bilirubin 0.60 (0.1-1.2) mg/dL AST 16 (5-40) units/L ALT 11 (7-56) units/L Alkaline Phosphatase 70 (35-129) units/L Total Creatine Kinase (30-135) units/L Troponin T < 0.010 (0.00-0.029) ng/mL Total Protein 7.0 (6.3-8.2) g/dL Albumin 4.2 (3.9-5) g/dL Albumin/Globulin Ratio 1.5 % HCG, Quant (0-4) mIU/mL Urine Color (Yellow) Urine Turbidity (Clear) Urine pH (5.0-7.0) Ur Specific [place] (1.003-1.030) Urine Protein (Negative) mg/dL Urine Glucose (UA) (Negative) mg/dL Urine Ketones (Negative) mg/dL Urine Blood (Negative) Urine Nitrite (Negative) Urine Bilirubin (Negative) Urine Urobilinogen (<2.0) mg/dL Ur Leukocyte Esterase (Negative) Urine WBC (Auto) (0.0-6.0) /HPF Urine RBC (Auto) (0.0-6.0) /HPF U Epithel Cells (Auto) (0-13.0) /HPF Urine Bacteria (Auto) (Negative) /HPF Urine Mucus /HPF 12/09/19 12/09/19 12/09/19 Range/Units 13:30 13:30 Unknown WBC (4.5-11.0) K/mm3 RBC (3.65-5.03) M/mm3 Hgb (10.1-14.3) gm/dl Hct (30.3-42.9) % MCV (79-97) fl MCH (28-32) pg MCHC (30-34) % RDW (13.2-15.2) % Plt Count (140-440) K/mm3 PT (12.2-14.9) Sec. INR (0.87-1.13) Sodium (137-145) mmol/L Potassium (3.6-5.0) mmol/L Chloride (98-107) mmol/L Carbon Dioxide (22-30) mmol/L Anion Gap mmol/L BUN (7-17) mg/dL Creatinine (0.7-1.2) mg/dL Estimated GFR ml/min BUN/Creatinine Ratio % Glucose (65-100) mg/dL Calcium (8.4-10.2) mg/dL Magnesium 1.90 (1.7-2.3) mg/dL Total Bilirubin (0.1-1.2) mg/dL AST (5-40) units/L ALT (7-56) units/L Alkaline Phosphatase (35-129) units/L Total Creatine Kinase 90 (30-135) units/L Troponin T (0.00-0.029) ng/mL Total Protein (6.3-8.2) g/dL Albumin (3.9-5) g/dL Albumin/Globulin Ratio % HCG, Quant 1.20 (0-4) mIU/mL Urine Color Yellow (Yellow) Urine Turbidity Hazy (Clear) Urine pH 6.0 (5.0-7.0) Ur Specific [place] 1.018 (1.003-1.030) Urine Protein <15 mg/dl (Negative) mg/dL Urine Glucose (UA) Neg (Negative) mg/dL Urine Ketones Neg (Negative) mg/dL Urine Blood Mod (Negative) Urine Nitrite Neg (Negative) Urine Bilirubin Neg (Negative) Urine Urobilinogen 4.0 (<2.0) mg/dL Ur Leukocyte Esterase Tr (Negative) Urine WBC (Auto) 2.0 (0.0-6.0) /HPF Urine RBC (Auto) 3.0 (0.0-6.0) /HPF U Epithel Cells (Auto) 17.0 H (0-13.0) /HPF Urine Bacteria (Auto) 1+ (Negative) /HPF Urine Mucus Few /HPF Lab Results 12/09/19 12/09/19 12/09/19 Range/Units 13:30 13:30 13:30 WBC 5.0 (4.5-11.0) K/mm3 RBC 4.36 (3.65-5.03) M/mm3 Hgb 13.0 (10.1-14.3) gm/dl Hct 39.3 (30.3-42.9) % MCV 90 (79-97) fl MCH 30 (28-32) pg MCHC 33 (30-34) % RDW 15.7 H (13.2-15.2) % Plt Count 214 (140-440) K/mm3 PT 14.5 (12.2-14.9) Sec. INR 1.15 H (0.87-1.13) Sodium 139 (137-145) mmol/L Potassium 3.9 (3.6-5.0) mmol/L Chloride 102.2 (98-107) mmol/L Carbon Dioxide 27 (22-30) mmol/L Anion Gap 14 mmol/L BUN 8 (7-17) mg/dL Creatinine 0.7 (0.7-1.2) mg/dL Estimated GFR > 60 ml/min BUN/Creatinine Ratio 11 % Glucose 103 H (65-100) mg/dL Calcium 9.2 (8.4-10.2) mg/dL Magnesium (1.7-2.3) mg/dL Total Bilirubin 0.60 (0.1-1.2) mg/dL AST 16 (5-40) units/L ALT 11 (7-56) units/L Alkaline Phosphatase 70 (35-129) units/L Total Creatine Kinase (30-135) units/L Troponin T < 0.010 (0.00-0.029) ng/mL Total Protein 7.0 (6.3-8.2) g/dL Albumin 4.2 (3.9-5) g/dL Albumin/Globulin Ratio 1.5 % HCG, Quant (0-4) mIU/mL Urine Color (Yellow) Urine Turbidity (Clear) Urine pH (5.0-7.0) Ur Specific [place] (1.003-1.030) Urine Protein (Negative) mg/dL Urine Glucose (UA) (Negative) mg/dL Urine Ketones (Negative) mg/dL Urine Blood (Negative) Urine Nitrite (Negative) Urine Bilirubin (Negative) Urine Urobilinogen (<2.0) mg/dL Ur Leukocyte Esterase (Negative) Urine WBC (Auto) (0.0-6.0) /HPF Urine RBC (Auto) (0.0-6.0) /HPF U Epithel Cells (Auto) (0-13.0) /HPF Urine Bacteria (Auto) (Negative) /HPF Urine Mucus /HPF 12/09/19 12/09/19 12/09/19 Range/Units 13:30 13:30 Unknown WBC (4.5-11.0) K/mm3 RBC (3.65-5.03) M/mm3 Hgb (10.1-14.3) gm/dl Hct (30.3-42.9) % MCV (79-97) fl MCH (28-32) pg MCHC (30-34) % RDW (13.2-15.2) % Plt Count (140-440) K/mm3 PT (12.2-14.9) Sec. INR (0.87-1.13) Sodium (137-145) mmol/L Potassium (3.6-5.0) mmol/L Chloride (98-107) mmol/L Carbon Dioxide (22-30) mmol/L Anion Gap mmol/L BUN (7-17) mg/dL Creatinine (0.7-1.2) mg/dL Estimated GFR ml/min BUN/Creatinine Ratio % Glucose (65-100) mg/dL Calcium (8.4-10.2) mg/dL Magnesium 1.90 (1.7-2.3) mg/dL Total Bilirubin (0.1-1.2) mg/dL AST (5-40) units/L ALT (7-56) units/L Alkaline Phosphatase (35-129) units/L Total Creatine Kinase 90 (30-135) units/L Troponin T (0.00-0.029) ng/mL Total Protein (6.3-8.2) g/dL Albumin (3.9-5) g/dL Albumin/Globulin Ratio % HCG, Quant 1.20 (0-4) mIU/mL Urine Color Yellow (Yellow) Urine Turbidity Hazy (Clear) Urine pH 6.0 (5.0-7.0) Ur Specific [place] 1.018 (1.003-1.030) Urine Protein <15 mg/dl (Negative) mg/dL Urine Glucose (UA) Neg (Negative) mg/dL Urine Ketones Neg (Negative) mg/dL Urine Blood Mod (Negative) Urine Nitrite Neg (Negative) Urine Bilirubin Neg (Negative) Urine Urobilinogen 4.0 (<2.0) mg/dL Ur Leukocyte Esterase Tr (Negative) Urine WBC (Auto) 2.0 (0.0-6.0) /HPF Urine RBC (Auto) 3.0 (0.0-6.0) /HPF U Epithel Cells (Auto) 17.0 H (0-13.0) /HPF Urine Bacteria (Auto) 1+ (Negative) /HPF Urine Mucus Few /HPF - EKG Data -: EKG Interpreted by Pr EKG shows normal: sinus rhythm Rate: normal - EKG Data When compared to previous EKG there are: no significant change 12/09/19 13:45 Sinus rhythm, 72 bpm, normal axis, normal intervals, low voltage in the anteroseptal leads, low voltage in the inferior leads, the EKG is not a STEMI. Appears to be unchanged compared to prior EKG from 10/24/2019 Question persistent juvenile T wave inversions/flattening. - Radiology Data Radiology results: pending, image reviewed X-ray of the chest is negative for acute disease. Critical care attestation.: If time is entered above; I have spent that time in minutes in the direct care of this critically ill patient, excluding procedure time. ED Disposition Clinical Impression: History of dysuria, History of chest pain, History of polyarthritis Disposition: - TO HOME OR SELFCARE Is pt being admited?: No Does the pt Need Aspirin: No Condition: Stable Additional Instructions: Patient may take Motrin, [id number], 400 mg by mouth with food, every 6 hours as needed for pain, alternating with Tylenol, 650 mg by mouth [id number], every 6 hours as needed for pain. Follow-up with a primary care doctor within the next 7 days. Cultures were sent today, and results will be available in the next 3 to 5 days. Please have a primary care doctor contact the medical records department to obtain culture results. Please avoid consumption of heavy and spicy foods, alcohol. Eat plenty of fiber, vegetables, and lean protein. Return to the emergency room right away with new pain, worsening pain, migration of pain, projectile vomiting, change in mental status, confusion, inability to tolerate liquid feeds, new, worsened or different symptoms not present on the initial emergency room evaluation. Referrals: [facility] [Provider Group] - 7-10 days
[2019-12-09 13:51] LABS: Hematocrit 39.3 % (30.3-42.9); Mean Corpuscular HGB Conc 33 % (30-34); Mean Corpuscular Volume 90 fl (79-97); Platelet Count 214 K/mm3 (140-440); Red Blood Count 4.36 M/mm3 (3.65-5.03); Red Cell Distribution Width 15.7 % (13.2-15.2)
[2019-12-09 14:07] LABS: Bacteria,Urine 1+ /HPF (Negative); Bilirubin,Urine NEG (Negative); Blood,Urine MOD (Negative); Color,Urine Yellow (Yellow); Mucus,Urine FEW /HPF; Protein,Urine <15 mg/dL mg/dL (Negative)
[2019-12-09 14:08] LABS: INR 1.15 (0.87-1.13)
[2019-12-09 14:13] LABS: Alanine Aminotransferase 11 units/L (7-56); Albumin 4.2 g/dL (3.9-5); BUN/Creatinine Ratio 11; Blood Urea Nitrogen 8 mg/dL (7-17); Calcium 9.2 mg/dL (8.4-10.2); Hemolysis Index 9
[2019-12-09 15:43] LABS: Bacteria,Urine 1+ /HPF (Negative); Bilirubin,Urine NEG (Negative); Blood,Urine LG (Negative); Color,Urine Straw (Yellow); Protein,Urine <15 mg/dL mg/dL (Negative); RBC,Urine < 1.0 /HPF (0.0-6.0); Urobilinogen,Urine < 2.0 mg/dL (<2.0)
== END 2019-12-09 16:04 ==
LOC: ED 11:40
DX: R07.89 Other chest pain (principal); F17.200 Nicotine dependence, unspecified, uncomplicated
CPT/HCPCS: 36415; 71045; 80053; 81001; 82550; 83735; 84484; 84702; 85027; 85610; 87086; 93005

== ENCOUNTER 2019-12-19 18:08 | Emergency (ER) | payer SELFPAY ==
[2019-12-19 18:13] VITALS: BP 116/76
--- NOTE | 2019-12-19 19:43 | Emergency Department Report ---
Chief Complaint: Allergic Reaction Stated Complaint: SKIN ALLERGIC REACTION TO MEDS/HERE LAST WEEK Time Seen by Provider: 12/19/19 19:15 - HPI History of Present Illness: This is a 34-year-old female who presents the ED complaining of hives for the past 2 days. Patient states she just recently started taking Synthroid for thyroid disorder that was prescribed to her by her primary care physician. Patient states that hives come and go. Likely to the past 2 days. She denies any difficulty swallowing, throat pain, difficulty breathing, chest pain or any other symptoms. - ROS Review of Systems: As noted in HPI - Exam Vital Signs: Vital Signs 12/19/19 18:09 Temperature 98.4 F Pulse Rate 105 H Respiratory 20 Rate Blood Pressure 116/76 O2 Sat by Pulse 99 Oximetry Physical Exam: As noted in HPI MSE screening note: Focused history and physical exam performed. Due to findings the following was ordered: ED Medical Decision Making - Medical Decision Making I discussed with patient to stop taking the medication and follow-up with her doctor soon as possible. I discussed with patient and keep taking Benadryl as needed for itching. Vital signs are normal patient is in no acute distress. ED Disposition for MSE Clinical Impression: Allergic reaction caused by a drug, Hives Disposition: Z- MED SCREENING EXAM-LEFT Is pt being admited?: No Does the pt Need Aspirin: No Condition: Stable Instructions: Urticaria (ED) Additional Instructions: Make sure to follow up with the primary care physician as discussed. Stop taking the medication as you have been told and follow-up with your primary care doctor If you have any worsening symptoms or develop new symptoms please return to ED immediately. Prescriptions: predniSONE [Deltasone] 20 mg PO QDAY #5 tab Referrals: PRIMARY CARE, [Primary Care Provider] - 3-5 Days Forms: Work/School Release Form(ED) Time of Disposition: 19:54
== END 2019-12-19 19:58 | disposition left against medical advice (07) ==
LOC: ED 18:08
DX: L29.9 Pruritus, unspecified (principal); Z53.21 Procedure and treatment not carried out due to patient leaving prior to being seen by health care provider

== ENCOUNTER 2020-03-31 10:21 | Emergency (ER) | payer MEDICAID ==
[2020-03-31 10:45] VITALS: BP 116/53
[2020-03-31] MEDS ORDERED: ACETAMINOPHEN 500 MG TAB PO ONE (12:49)
[2020-03-31 13:29] LABS: Basophils % (Auto) 0.4 % (0.0-1.8); Eosinophils % (Auto) 0.4 % (0.0-4.3); Hematocrit 38.8 % (30.3-42.9); Hemoglobin 13.1 gm/dl (10.1-14.3); Lymphocytes # (Auto) 2.2 K/mm3 (1.2-5.4); Mean Corpuscular HGB Conc 34 % (30-34); Mean Corpuscular Volume 93 fl (79-97); Monocytes # (Auto) 0.6 K/mm3 (0.0-0.8); Monocytes % (Auto) 7.5 % (0.0-7.3); Platelet Count 212 K/mm3 (140-440); Red Blood Count 4.18 M/mm3 (3.65-5.03); Red Cell Distribution Width 15.1 % (13.2-15.2)
[2020-03-31 13:39] LABS: Blood Urea Nitrogen 5 mg/dL (7-17); Calcium 9.1 mg/dL (8.4-10.2); Hemolysis Index 5
[2020-03-31 13:42] LABS: BUN/Creatinine Ratio 8
--- NOTE | 2020-03-31 14:07 | Emergency Department Report ---
ED HPI - General Chief complaint: Abdominal Pain Stated complaint: LOWER BACK PAIN/CP/9WEEK PREG Time Seen by Provider: 03/31/20 12:40 Source: patient Mode of arrival: Ambulatory Limitations: No Limitations - History of Present Illness Initial comments: This is a 35-year-old female nontoxic, well nourished in appearance, no acute signs of distress presents to the ED with c/o of bilataeral flank pain with nausea x several days. Patient denies any vaginal bleeding. Stated is about 9 week . Patient denies any abdominal or pelvic pain. Patient denies any vaginal discharge or foul odor. Patient denies any nausea, vomiting, chest pain, shortness of breathe, fever, chills, headache, stiff neck, numbness, tingling. Patient denies any urinary symptoms. Patient denies any allergies or PMH. -: days(s) Location: flank Radiation: none Severity: mild Severity scale (0 -10): 8 Quality: aching Consistency: intermittent Improves with: rest Worsens with: movement Associated symptoms: denies other symptoms. denies: nausea/vomiting, vaginal bleeding, vaginal discharge, abdominal pain, dysuria, headache, vision changes, malaise, dysparuenia, rash, seizure, shortness of breath, syncope, weakness Vaginal bleeding: none :: Yes Number of weeks : 9 - Related Data Previous Rx's Medication Instructions Recorded Last Taken Type Amoxicillin/Potassium Clav 1 each PO BID #8 tablet 09/19/19 Unknown Rx [Augmentin 875-125 Tablet] Esomeprazole Magnesium [NexIUM] 40 mg PO QDAY #30 suspdr.pkt 09/19/19 Unknown Rx metroNIDAZOLE [Flagyl] 500 mg PO Q12HR #28 tab 09/19/19 Unknown Rx raNITIdine HCL [Zantac] 150 mg PO BID #60 tablet 09/19/19 Unknown Rx predniSONE [Deltasone] 20 mg PO QDAY #5 tab 12/19/19 Unknown Rx Ibuprofen [Motrin] 800 mg PO Q8HR #30 tablet 01/16/20 Unknown Rx Pseudoephedrine ER [Sudafed 12 Hr] 120 mg PO BID #10 tablet.er 01/16/20 Unknown Rx Acetaminophen [Acetaminophen 8 650 mg PO Q8H PRN #12 tablet.er 03/31/20 Unknown Rx Hour] Allergies Allergy/AdvReac Type Severity Reaction Status Date / Time No Known Allergies Allergy Verified 10/24/19 08:39 ED Review of Systems ROS: Stated complaint: LOWER BACK PAIN/CP/9WEEK PREG Other details as noted in HPI Constitutional: denies: chills, fever Eyes: denies: eye pain, eye discharge, vision change ENT: denies: ear pain, throat pain Respiratory: denies: cough, shortness of breath, wheezing Cardiovascular: denies: chest pain, palpitations Endocrine: no symptoms reported Gastrointestinal: denies: abdominal pain, nausea, diarrhea Genitourinary: denies: urgency, dysuria, discharge Musculoskeletal: denies: back pain, joint swelling, arthralgia Skin: denies: rash, lesions Neurological: denies: headache, weakness, paresthesias Psychiatric: denies: anxiety, depression Hematological/Lymphatic: denies: easy bleeding, easy bruising ED Past Medical Hx - Past Medical History Previous Medical History?: No Additional medical history: Hypothyroidism - Surgical History Past Surgical History?: No - Social History Smoking Status: Never Smoker Substance Use Type: None - Medications Home Medications: Home Medications Medication Instructions Recorded Confirmed Last Taken Type Amoxicillin/Potassium Clav 1 each PO BID #8 tablet 09/19/19 Unknown Rx [Augmentin 875-125 Tablet] Esomeprazole Magnesium [NexIUM] 40 mg PO QDAY #30 suspdr.pkt 09/19/19 Unknown Rx metroNIDAZOLE [Flagyl] 500 mg PO Q12HR #28 tab 09/19/19 Unknown Rx raNITIdine HCL [Zantac] 150 mg PO BID #60 tablet 09/19/19 Unknown Rx predniSONE [Deltasone] 20 mg PO QDAY #5 tab 12/19/19 Unknown Rx Ibuprofen [Motrin] 800 mg PO Q8HR #30 tablet 01/16/20 Unknown Rx Pseudoephedrine ER [Sudafed 12 Hr] 120 mg PO BID #10 tablet.er 01/16/20 Unknown Rx Acetaminophen [Acetaminophen 8 650 mg PO Q8H PRN #12 tablet.er 03/31/20 Unknown Rx Hour] ED Physical Exam - General Limitations: No Limitations General appearance: alert, in no apparent distress - Head Head exam: Present: atraumatic, normocephalic - Eye Eye exam: Present: normal appearance - Neck Neck exam: Present: normal inspection, full ROM. Absent: tenderness, meningismus, lymphadenopathy - Respiratory Respiratory exam: Present: normal lung sounds bilaterally. Absent: respiratory distress, wheezes, rales, rhonchi, stridor, chest wall tenderness, accessory muscle use, decreased breath sounds, prolonged expiratory - Cardiovascular Cardiovascular Exam: Present: regular rate, normal rhythm, normal heart sounds. Absent: bradycardia, tachycardia, irregular rhythm, systolic murmur, diastolic murmur, rubs, gallop - GI/Abdominal GI/Abdominal exam: Present: soft, normal bowel sounds. Absent: distended, tenderness, guarding, rebound, rigid, diminished bowel sounds - Extremities Exam Extremities exam: Present: normal inspection, full ROM - Back Exam Back exam: Present: normal inspection, full ROM, paraspinal tenderness (lumbar paraspinal). Absent: tenderness, CVA tenderness (R), CVA tenderness (L), muscle spasm, vertebral tenderness, rash noted - Neurological Exam Neurological exam: Present: alert, oriented X3, normal gait - Psychiatric Psychiatric exam: Present: normal affect, normal mood - Skin Skin exam: Present: warm, dry, intact, normal color. Absent: rash ED Course Vital Signs 03/31/20 10:39 Temperature 98.1 F Pulse Rate 76 Respiratory 20 Rate Blood Pressure 116/53 Blood Pressure 116/53 [Right] O2 Sat by Pulse 100 Oximetry - Reevaluation(s) Reevaluation #1: 03/31/20 14:09 Patient is speaking in full sentences with no signs of distress noted. ED Medical Decision Making - Lab Data Result diagrams: 03/31/20 13:01 03/31/20 13:01 Lab Results 03/31/20 03/31/20 03/31/20 Range/Units 13:01 13:01 13:01 WBC 8.6 (4.5-11.0) K/mm3 RBC 4.18 (3.65-5.03) M/mm3 Hgb 13.1 (10.1-14.3) gm/dl Hct 38.8 (30.3-42.9) % MCV 93 (79-97) fl MCH 31 (28-32) pg MCHC 34 (30-34) % RDW 15.1 (13.2-15.2) % Plt Count 212 (140-440) K/mm3 Lymph % (Auto) 26.0 (13.4-35.0) % Daniels % (Auto) 7.5 H (0.0-7.3) % Eos % (Auto) 0.4 (0.0-4.3) % Baso % (Auto) 0.4 (0.0-1.8) % Lymph # (Auto) 2.2 (1.2-5.4) K/mm3 Daniels # (Auto) 0.6 (0.0-0.8) K/mm3 Eos # (Auto) 0.0 (0.0-0.4) K/mm3 Baso # (Auto) 0.0 (0.0-0.1) K/mm3 Seg Neutrophils % 65.7 (40.0-70.0) % Seg Neutrophils # 5.6 (1.8-7.7) K/mm3 Sodium 133 L (137-145) mmol/L Potassium 3.9 (3.6-5.0) mmol/L Chloride 98.5 (98-107) mmol/L Carbon Dioxide 24 (22-30) mmol/L Anion Gap 14 mmol/L BUN 5 L (7-17) mg/dL Creatinine 0.6 (0.6-1.2) mg/dL Estimated GFR > 60 ml/min BUN/Creatinine Ratio 8 % Glucose 103 H (65-100) mg/dL Calcium 9.1 (8.4-10.2) mg/dL HCG, Quant 33643 H (0-4) mIU/mL Urine Color (Yellow) Urine Turbidity (Clear) Urine pH (5.0-7.0) Ur Specific [place] (1.003-1.030) Urine Protein (Negative) mg/dL Urine Glucose (UA) (Negative) mg/dL Urine Ketones (Negative) mg/dL Urine Blood (Negative) Urine Nitrite (Negative) Urine Bilirubin (Negative) Urine Urobilinogen (<2.0) mg/dL Ur Leukocyte Esterase (Negative) Urine WBC (Auto) (0.0-6.0) /HPF Urine RBC (Auto) (0.0-6.0) /HPF U Epithel Cells (Auto) (0-13.0) /HPF Urine Bacteria (Auto) (Negative) /HPF 03/31/20 Range/Units 13:38 WBC (4.5-11.0) K/mm3 RBC (3.65-5.03) M/mm3 Hgb (10.1-14.3) gm/dl Hct (30.3-42.9) % MCV (79-97) fl MCH (28-32) pg MCHC (30-34) % RDW (13.2-15.2) % Plt Count (140-440) K/mm3 Lymph % (Auto) (13.4-35.0) % Daniels % (Auto) (0.0-7.3) % Eos % (Auto) (0.0-4.3) % Baso % (Auto) (0.0-1.8) % Lymph # (Auto) (1.2-5.4) K/mm3 Daniels # (Auto) (0.0-0.8) K/mm3 Eos # (Auto) (0.0-0.4) K/mm3 Baso # (Auto) (0.0-0.1) K/mm3 Seg Neutrophils % (40.0-70.0) % Seg Neutrophils # (1.8-7.7) K/mm3 Sodium (137-145) mmol/L Potassium (3.6-5.0) mmol/L Chloride (98-107) mmol/L Carbon Dioxide (22-30) mmol/L Anion Gap mmol/L BUN (7-17) mg/dL Creatinine (0.6-1.2) mg/dL Estimated GFR ml/min BUN/Creatinine Ratio % Glucose (65-100) mg/dL Calcium (8.4-10.2) mg/dL HCG, Quant (0-4) mIU/mL Urine Color Straw (Yellow) Urine Turbidity Hazy (Clear) Urine pH 6.0 (5.0-7.0) Ur Specific [place] 1.004 (1.003-1.030) Urine Protein <15 mg/dl (Negative) mg/dL Urine Glucose (UA) Neg (Negative) mg/dL Urine Ketones Neg (Negative) mg/dL Urine Blood Neg (Negative) Urine Nitrite Neg (Negative) Urine Bilirubin Neg (Negative) Urine Urobilinogen < 2.0 (<2.0) mg/dL Ur Leukocyte Esterase Neg (Negative) Urine WBC (Auto) 1.0 (0.0-6.0) /HPF Urine RBC (Auto) 5.0 (0.0-6.0) /HPF U Epithel Cells (Auto) 11.0 (0-13.0) /HPF Urine Bacteria (Auto) 2+ (Negative) /HPF - Radiology Data US OB <= 14 weeks fetus INDICATION / CLINICAL INFORMATION: pelvic and back pains. COMPARISON: None available. FINDINGS: A single live fetus of approximately 10 weeks 0 days gestational age is seen in the uterus. heart rate is 173. No free fluid is seen. The right ovary is enlarged. Left ovary is not visualized. IMPRESSION: Single live fetus of approximately 10 weeks 0 days gestational age in the uterus with heart rate of 173 Signer Name: aYdiel Tavares MD FACR Signed: 03/31/2020 4:44 PM Workstation Name: [id number] - Medical Decision Making This is a 35-year-old female that presents with back pains during . Patient is stable and was examined by me. There is no abdominal tenderness. Negative signs of symptoms of appendicitis. Labs obtained. UA obtained. OB US obtained and dictated by the radiologist. Patient is notified of the report with no questions noted by the patient. Vital signs are stable prior to discharge. Patient received medical treatment in the ED which patient stated symptoms has resovled and subsided. Patient was also instructed to Follow-up with a OBGYN doctor in 3-5 days or if symptoms worsen and continue return to emergency room as soon as possible. At time of discharge, the patient does not seem toxic or ill in appearance. No acute signs of distress noted. Patient agrees to discharge treatment plan of care. No further questions noted by the patient. Critical care attestation.: If time is entered above; I have spent that time in minutes in the direct care of this critically ill patient, excluding procedure time. ED Disposition Clinical Impression: with flank pain, antepartum Disposition: DC-01 TO HOME OR SELFCARE Is pt being admited?: No Does the pt Need Aspirin: No Condition: Stable Instructions: (ED) Additional Instructions: Follow-up with a OBGYN doctor in 3-5 days or if symptoms worsen and continue return to emergency room as soon as possible. Prescriptions: Acetaminophen [Acetaminophen 8 Hour] 650 mg PO Q8H PRN #12 tablet.er PRN Reason: Pain , Severe (7-10) Referrals: PRIMARY CARE, [Primary Care Provider] - 3-5 Days [facility] [Provider Group] - 3-5 Days [facility] [Provider Group] - 3-5 Days Forms: Work/School Release Form(ED)
[2020-03-31 14:46] LABS: Bacteria,Urine 2+ /HPF (Negative); Bilirubin,Urine NEG (Negative); Blood,Urine NEG (Negative); Color,Urine Straw (Yellow); Protein,Urine <15 mg/dL mg/dL (Negative); Urobilinogen,Urine < 2.0 mg/dL (<2.0)
--- NOTE | 2020-03-31 17:49 | Ultrasound Report ---
US OB <= 14 weeks fetus INDICATION / CLINICAL INFORMATION: pelvic and back pains. COMPARISON: None available. FINDINGS: A single live fetus of approximately 10 weeks 0 days gestational age is seen in the uterus. hea rt rate is 173. No free fluid is seen. The right ovary is enlarged. Left ovary is not visualized. IMPRESSION: Single live fetus of approximately 10 weeks 0 days gestational age in the uterus with heart rat e of 173 Signer Name: Yadiel Tavares MD FACR Signed: 03/31/2020 5:44 PM Workstation Name: [id number]
== END 2020-03-31 17:59 | disposition home or self-care (01) ==
LOC: ED 10:21
DX: O26.891 Other specified pregnancy related conditions, first trimester (principal); R10.2 Pelvic and perineal pain; E05.00 Thyrotoxicosis with diffuse goiter without thyrotoxic crisis or storm; Z3A.09 9 weeks gestation of pregnancy; Z79.899 Other long term (current) drug therapy
CPT/HCPCS: 36415; 76801; 80048; 81001; 84702; 85025

== ENCOUNTER 2020-10-26 10:57 | Outpatient (CLI) | payer MEDICAID ==
[2020-10-26 13:29] VITALS: BP 124/75
== END 2020-10-26 13:46 | disposition home or self-care (01) ==
LOC: TRG 10:57 → APU 10:58 → TRG 13:46
PROVIDERS: ATTEND Obstetrics & Gynecology
DX: Z34.93 Encounter for supervision of normal pregnancy, unspecified, third trimester (principal); Z3A.39 39 weeks gestation of pregnancy
CPT/HCPCS: 59025

== ENCOUNTER 2020-10-27 04:35 | Inpatient (IN) | payer MEDICAID ==
[2020-10-27] MEDS ORDERED: MORPHINE 4 MG/1 ML INJ IM ONE (05:01)
[2020-10-27] MEDS ORDERED: hydrOXYzine HCL 100 MG/2 ML INJ IM ONE (05:02)
[2020-10-27] MEDS ORDERED: LACTATED RINGERS 1,000 ML IV ONE (05:07)
[2020-10-27] MEDS ORDERED: TERBUTALINE 1 MG/1 ML INJ SUB-Q PRN (06:32)
[2020-10-27] MEDS ORDERED: MINERAL OIL 30 ML ORAL LIQD PO PRN (06:32)
[2020-10-27] MEDS ORDERED: AMPICILLIN/NS 2 GM/100 ML 2 GM/100 ML BAG IV ONE (06:32)
[2020-10-27] MEDS ORDERED: ePHEDrine SULFATE 50 MG/1 ML INJ IV PRN (06:32)
[2020-10-27] MEDS ORDERED: fentaNYL 100 MCG/2 ML INJ IV PRN (06:32)
[2020-10-27] MEDS ORDERED: LIDOCAINE (2%) 20 MG/1 ML VIAL 20 ML MDV INFILTRATI ONE (06:32)
[2020-10-27] MEDS ORDERED: BUTORPHANOL 2 MG/1 ML INJ IV PRN (06:32)
[2020-10-27] MEDS ORDERED: LACTATED RINGERS 1,000 ML IV SCH (06:45)
[2020-10-27] MEDS ORDERED: OXYTOCIN DRIP 30 UNITS/500 ML BAG IV SCH (07:00)
[2020-10-27 07:30] LABS: Hepatitis C Virus Antibody Non-Reactive (NonReactive)
[2020-10-27 08:32] LABS: Hematocrit 38.1 % (30.3-42.9); Hemoglobin 12.9 gm/dl (10.1-14.3); Mean Corpuscular HGB Conc 34 % (30-34); Mean Corpuscular Volume 93 fl (79-97); Platelet Count 194 K/mm3 (140-440); Red Cell Distribution Width 14.7 % (13.2-15.2)
--- NOTE | 2020-10-27 08:44 | History and Physical Report ---
History of Present Illness Date of examination: 10/27/20 Date of admission: 10/27/20 04:36 Chief complaint: active labor History of present illness: 35yo at 39.2, active Labor. [facility] Past History Past Surgical History: no surgical history - Obstetrical History Expected Date of Delivery: 11/01/20 Actual Gestation: 39 Week(s) 2 Day(s) : 3 Para: 2 Medications and Allergies Allergies Allergy/AdvReac Type Severity Reaction Status Date / Time No Known Allergies Allergy Verified 10/24/19 08:39 Home Medications Medication Instructions Recorded Confirmed Last Taken Type Ibuprofen [Motrin Ib] 600 mg PO Q6HR PRN #90 capsule 10/27/20 Unknown Rx One Daily Tablet 1 tab PO DAILY 10/27/20 10/27/20 1 Day Ago History ~10/26/20 Active Meds: Active Medications Butorphanol Tartrate (Butorphanol 2 Mg/1 Ml Inj) 2 mg IV Q2H PRN PRN Reason: Pain , Severe (7-10) Ephedrine Sulfate (Ephedrine Sulfate 50 Mg/1 Ml Inj) 10 mg IV Q2M PRN PRN Reason: Hypotension Fentanyl (Fentanyl 100 Mcg/2 Ml Inj) 100 mcg IV Q2H PRN PRN Reason: Pain,Severe (7-10) LABOR PAIN Last Admin: 10/27/20 08:12 Dose: 100 mcg Documented by: Lactated Ringer's (Lactated Ringers) 1,000 mls @ 125 mls/hr IV DIRECT LAZARUS Last Admin: 10/27/20 08:29 Dose: 125 mls/hr Documented by: Oxytocin/Sodium Chloride (Pitocin/Ns 30 Unit/500ml) 30 units in 500 mls @ 40 mls/hr IV TITR LAZARUS Ampicillin Sodium (Ampicillin/Ns 1 Gm/50 Ml) 1 gm in 50 mls @ 100 mls/hr IV Q4H LAZARUS; Protocol Mineral Oil (Mineral Oil 30 Ml Oral Liqd) 30 ml PO QHS PRN PRN Reason: Constipation Terbutaline Sulfate (Terbutaline 1 Mg/1 Ml Inj) 0.25 mg SUB-Q ONCE PRN PRN Reason: Hyperstimulation/Hypertonicity - Vital Signs Vital signs: Vital Signs Temp 98.2 F 10/27/20 04:44 Temp Pulse Resp BP Pulse Ox 97.8 F 100 H 24 113/59 100 04/27/21 07:28 10/27/20 08:42 10/27/20 08:12 10/27/20 07:27 10/27/20 08:42 - Physical Exam Breasts: Positive: deferred Cardiovascular: Regular rate Lungs: Positive: Clear to auscultation Abdomen: Positive: normal appearance, normal bowel sounds Anus/Rectum: Positive: normal perianal skin Extremities: Positive: normal Deep Tendon Reflex Grade: Normal +2 - Obstetrical FHR: category 1 Cervical Dilatation: 4 Results Result Diagrams: 10/27/20 06:45 All other labs normal. Assessment and Plan admission abx cfm pain meds prn expect maternal/ well being reassuring overall Valdez Aggarwal MD
--- NOTE | 2020-10-27 10:08 | Procedure Note ---
OB Delivery Note - Delivery Date of Delivery: 10/27/20 Surgeon: BLESSING MAXWELL Estimated blood loss: 200cc - Vaginal Delivery position: OA Delivery induction: none Delivery augmentation: rupture of membranes Delivery monitor: external FHT, external uterine Route of delivery: Delivery placenta: spontaneous Delivery cord: 3 umbilical vessels Episiotomy: none Delivery laceration: 1st degree Delivery repair: vicryl Anesthesia: none Delivery comments: I was called for delivery at 9.40am: I entered to delivery room after delivery of the infant at 9:42am .... RN precipitous delivery-uncomplicated.Loose body and nuchal cord reduced after delivery. I delivered an intact placenta with three vessel cord spontaneously. I repaired a first degree perineal laceration with 2-0 vicryl in the usual fashion. Firm fundus at the completion of delivery. All sponge, needle and instrument counts correctx2. Mom and baby stable to . Valdez Maxwell MD - A at 1 minute: 7 at 5 minutes: 9 Infant Gender: Male (3127gms)
[2020-10-27] MEDS ORDERED: PROMETHAZINE 25 MG RECT SUPP PR PRN (10:30)
[2020-10-27] MEDS ORDERED: ACETAMINOPHEN 325 MG TAB PO PRN (10:30)
[2020-10-27] MEDS ORDERED: WITCH HAZEL/ GLYCERIN PAD TP PRN (10:30)
[2020-10-27] MEDS ORDERED: PROMETHAZINE 25 MG TAB PO PRN (10:30)
[2020-10-27] MEDS ORDERED: ONDANSETRON 4 MG/2 ML INJ IV PRN (10:30)
[2020-10-27] MEDS ORDERED: HYDROcodone/ACETAMINOPHEN 5-325 MG TAB PO PRN (10:30)
[2020-10-27] MEDS ORDERED: diphenhydrAMINE 25 MG CAP PO PRN (10:30)
[2020-10-27] MEDS ORDERED: LANOLIN/ZINC/DIMETHICONE (LANSINOH) 7 GM TP PRN (10:30)
[2020-10-27] MEDS ORDERED: AMPICILLIN/NS 1 GM/50 ML 1 GM/50 ML BAG IV SCH (11:00)
[2020-10-27] MEDS: IBUPROFEN 600 MG TAB PO SCH ×2 (17:48→22:21)
[2020-10-27] MEDS ORDERED: MAGNESIUM HYDROXIDE (MOM) ORAL LIQD UDC PO PRN (22:00)
[2020-10-27 23:40] LABS: Hematocrit 35.3 % (30.3-42.9); Hemoglobin 11.8 gm/dl (10.1-14.3)
[2020-10-28] MEDS: IBUPROFEN 600 MG TAB PO SCH (05:22)
--- NOTE | 2020-10-28 14:32 | Discharge Summary ---
Providers - Providers Date of Admission: 10/27/20 04:36 Date of discharge: 10/28/20 Attending physician: SLIME DORADO Primary care physician: SLIME DORADO Hospitalization Reason for admission: active labor Delivery: Episiotomy: none Other procedures: none complications: none Discharge diagnosis: IUP at term delivered baby: male Hospital course: Patient presented in active labor and underwent uncomplicated vaginal delivery. She delivered a viable male in cephalic presentation. 1st degree perineal laceration repaired. No complications. On day 1 she was tolerating po, ambulating and voiding without assistance, with pain controlled on oral medications. She had stable vital signs and hematocrit and was deemed appropriate for discharge. Condition at discharge: Good Disposition: DC-01 TO HOME OR SELFCARE - Discharge Diagnoses (1) Vaginal delivery Status: Acute Plan - Discharge Medications Prescriptions: Ibuprofen [Motrin Ib] 600 mg PO Q6HR PRN #90 capsule PRN Reason: Pain, Moderate (4-6) - Provider Discharge Summary Activity: no sex for 6 weeks Diet: routine Instructions: routine Additional instructions: [] Smoking cessation referral if applicable(refer to patient education folder for contact #) [] Refer to [facility] Booklet Call your doctor immediately for: * Fever > 100.5 * Heavy vaginal bleeding ( >1 pad per hour) * Severe persistent headache * Shortness of breath * Reddened, hot, painful area to leg or breast * Drainage or odor from incision. * Keep incision clean and dry at all times and follow doctor's instructions regarding bathing/showering - Follow up plan Follow up: SLIME DORADO MD [Primary Care Provider] - 7 Days
--- NOTE | 2020-10-28 14:36 | Progress Note ---
Assessment and Plan Discharge today Follow up outpatient 4-6 wks - Patient Problems (1) Vaginal delivery Current Visit: Yes Status: Acute Plan to address problem: care per routine -breast/bottle feeding -discharge today Subjective - Subjective Patient reports: appetite normal, voiding normally, pain well controlled, flatus, bowel movement, ambulating normally [place]: doing well Objective - Vital Signs Latest vital signs: Vital Signs Temp Pulse Resp BP BP Pulse Ox 10/28/20 08:25 98.2 F 81 18 118/58 99 10/28/20 06:18 18 10/28/20 05:22 18 10/28/20 00:00 98.6 F 69 18 114/78 10/27/20 23:21 18 10/27/20 22:21 18 10/27/20 21:04 98.0 F 82 18 117/68 98 10/27/20 16:32 97.3 F L 97 H 20 131/83 98 Intake and Output 10/27/20 10/28/20 10/28/20 22:59 06:59 14:59 Intake Total 300 Balance 300 Intake: Intake, Free Water 300 Other: # Voids Void 1 - Exam Breasts: Present: normal Cardiovascular: Present: Regular rate Lungs: Present: Clear to auscultation Abdomen: Present: normal appearance, soft, normal bowel sounds. Absent: distention, tenderness, guarding Uterus: Present: normal, firm Extremities: Present: normal
[2020-10-28 18:19] VITALS: BP 136/84
[2020-10-29] MEDS ORDERED: FLU VACC QUAD 2020-2021 (6 months +)/PF 60 0.5 ML SYRINGE IM ONE (06:00)
== END 2020-10-28 17:45 | disposition home or self-care (01) | DRG 775 ==
LOC: TRG 04:35 → LD 04:36 → APU 04:40 → TRG 06:32 → OB 11:33
PROVIDERS: ADMIT Obstetrics & Gynecology; ATTEND Obstetrics & Gynecology
PROC: 10E0XZZ Delivery of Products of Conception, External Approach (ICD-10-PCS; principal; 2020-10-27)
PROC: 0HQ9XZZ Repair Perineum Skin, External Approach (ICD-10-PCS; 2020-10-27)
DX: O62.3 Precipitate labor (principal); O69.1XX0 Labor and delivery complicated by cord around neck, with compression, not applicable or unspecified; Z20.822 Contact with and (suspected) exposure to COVID-19; O70.0 First degree perineal laceration during delivery; Z3A.39 39 weeks gestation of pregnancy; Z37.0 Single live birth; Z79.899 Other long term (current) drug therapy
CPT/HCPCS: 36415; 59025; 85014; 85018; 85027; 86592; 86706; 86762; 86803; 86850; 86900; 86901; 87529; 87806; 96360; 96372; G0378; J0290; J2270; J2590; J3010; J3410; J7120; U0003